=== PATIENT | male | born 1950 | race Caucasian/White ===

== ENCOUNTER → 2016-10-18 | Outpatient (CLI) | payer OTHER ==
[~2016-10-18] VITALS: Ht 182.9 cm; Wt 104.9 kg
[~2016-10-18] MED LIST: BENADRYL25 MG PO; FLEXERIL PO; GABAPENTIN 100100 MG PO; IBUPROFEN 800800 M1 PO; LISINOPRIL-HCT1 EACH PO; MOBIC15 MG PO; NORCO 5-325 TA1 EACH PO; OMEPRAZOLE20 M2 PO; XANAX1 MG PO; ZYRTEC10 MG PO
--- NOTE | ~2016-10-18 | HPC ---
[facility] [address] [place] [address] PAIN MANAGEMENT CONSULTATION Name: MAKSIM MONTES DE OCA Room #: REG ROSCOE [place].#: [id number] Admission: 10/18/16 Attend Phys: Allan Cruz MD Discharge: Date of : 54 Report #: [id number] THIS REPORT FOR: //name// CC: Nessa Cruz DATE OF SERVICE: 10/18/2016 Followup visit for lumbar radicular pain syndrome, chronic and recurrent. The patient was last seen on 01/23/2016, at which time he received a lumbar epidural injection, again providing excellent pain relief for many months. It has now been about 9 months since his last injection, would like another injection today. He scores his pain as a 4/10 at its lowest level and it worsens at times with a radiating shooting pain into his left thigh that can be as high as 8 or 9. He has chronic spondylosis and reports that his morning stiffness is often his worse time of the day. When he up moving he seems to be better. We have talked about exercise and the importance of remaining active. He plays golf with some regularity and so this is obviously a passion that we want to help him continue to follow. Uses hydrocodone very sparingly. I agreed to provide him with hydrocodone 5/325. A single prescription of this medication has been able to last for many months, total of 60 tablets. He also takes ibuprofen 800 mg, but does not take it daily, and he takes omeprazole daily to help GI side effects. We talked about the risks of nonsteroidal anti-inflammatory drugs as well as the opioid medications. PHYSICAL EXAMINATION: GENERAL: He is a very affable, outgoing 65-year-old. VITAL SIGNS: Blood pressure 137/94, heart rates 76. His BMI is 31.4. MUSCULOSKELETAL: He has tenderness across his low back. He has positive straight leg raising on the right that involves the L2-L3 distribution. IMPRESSION: L2 on L3 retrolisthesis resulting in neural foraminal stenosis and lumbar radiculopathy. RECOMMENDATIONS: Repeat epidural injection under fluoroscopic guidance. DESCRIPTION OF PROCEDURE: The patient was taken to the fluoroscopic suite, placed prone, skin prepped with ChloraPrep, skin anesthetized over the L3-L4 interspace. A 20-gauge Tuohy epidural needle [place] [address] PAIN MANAGEMENT CONSULTATION Name: MAKSIM MONTES DE OCA Room #: REG ROSCOE [place]#: [id number] Admission: 10/18/16 Attend Phys: Allan Cruz MD Discharge: Date of : 54 Report #: [id number] using loss of resistance technique. No blood or CSF aspirated. 1 mL of Omnipaque injected. Good spread of dye observed in the epidural space followed by 3 mL of 0.5% lidocaine mixed with 80 mg of triamcinolone. He tolerated the procedure well and was observed for 45 minutes and discharged. Pain score is zero. By: [id number] Allan Cruz MD /nt
[2016-10-18 10:47] VITALS: BP 137/94
== END | disposition home or self-care (01) ==
LOC: PAIN 10:16
DX: M48.06 Spinal stenosis, lumbar region (principal); M43.16 Spondylolisthesis, lumbar region; Z87.891 Personal history of nicotine dependence

== ENCOUNTER → 2016-12-30 | Outpatient (CLI) | payer OTHER ==
[~2016-12-30] VITALS: Ht 182.9 cm; Wt 102.1 kg
[2016-12-30 08:37] VITALS: BP 125/83
== END | disposition home or self-care (01) ==
LOC: PAIN 06:41
DX: M54.16 Radiculopathy, lumbar region (principal); M43.16 Spondylolisthesis, lumbar region; Z87.891 Personal history of nicotine dependence

== ENCOUNTER → 2017-02-17 | Outpatient (CLI) | payer OTHER ==
[~2017-02-17] VITALS: Ht 182.9 cm; Wt 98.9 kg
--- NOTE | ~2017-02-17 | HPC ---
[facility] [place] [place] [address] PAIN MANAGEMENT CONSULTATION Name: MAKSIM MONTES DE OCA Room #: REG ZENOBIARj Boyle#: [id number] Admission: 02/17/17 Attend Phys: Allan Cruz MD Discharge: Date of : 54 Report #: [id number] THIS REPORT FOR: //name// CC: SEBASTIAN Cruz DATE OF SERVICE: 02/17/2017 Followup visit for lumbar radiculopathy. The patient returns to the pain clinic today in followup. He has lumbar radiculopathy, which has responded well to lumbar epidural injections. He made this appointment today before moves to [place] with thought that he may have another epidural just before he leaves. This pain, however, continues to do very well from his most recent visit injection and he does not feel like he needs an injection. I would agree with this assessment. We discussed this finding of an L2-L3 retrolisthesis, resulting in neural foraminal stenosis and radiculopathy. He may request further injections while he is in [place]. We talked about finding a clinic that would treat him similarly to the way he has been treated here. He has been pleased with his response in his treatment. His medication will be also continued. I would suspect, however, with the opioid crisis, it is hard to say. I will say this, he is using very little hydrocodone. His current daily use of hydrocodone ranges from 0 to 2 tablets. I provided him with 60 tablets of hydrocodone 5/325 on 12/30/2016 and now 6 weeks later he still has about half the bottle. This would calculate out to less than 1 tablet per day. I think it would be reasonable for him to continue to use this and quite safe. He understands the opioid crisis well with all other discussions and will safeguard medications. He was discharged without injections. No prescriptions prescribed today. We will be glad to follow up as needed. Wished him good luck with his transition to a new home in [place]. By: [id number] Allan Cruz MD /nt
[2017-02-17 08:16] VITALS: BP 125/92
== END | disposition home or self-care (01) ==
LOC: PAIN 06:59
DX: M54.16 Radiculopathy, lumbar region (principal); M43.16 Spondylolisthesis, lumbar region; Z87.891 Personal history of nicotine dependence